=== PATIENT | female | born 1945 | race Caucasian/White ===

== ENCOUNTER → 2020-03-13 | Outpatient (CLI) | payer MEDICARE | LOC: M.ULTRA 10:52 | DX: M79.605 Pain in left leg (principal); R60.0 Localized edema ==

== ENCOUNTER → 2020-12-10 | Outpatient (CLI) | payer MEDICARE | LOC: M.ULTRA 10:16 | DX: L98.9 Disorder of the skin and subcutaneous tissue, unspecified (principal) ==